=== PATIENT | male | born 1990 | race Two or more races ===

== ENCOUNTER 2017-05-11 07:24 | Emergency (ER) | payer SELFPAY ==
[~2017-05-11] VITALS: Ht 193 cm; Wt 129.3 kg
[2017-05-11 08:56] VITALS: BP 155/84
--- NOTE | 2017-05-11 09:08 | RAD ---
Three views FOOT RIGHT 3V Clinical History: leg fell through roof while working Comparison: None. Findings: The visualized osseous structures appear normal. Impression: No acute findings.
--- NOTE | 2017-05-11 09:10 | RAD ---
Two-view right tibia-fibula Clinical History: pain AP and lateral views were obtained. Previous studies: none The visualized osseous structures appear normal. Impression: No acute findings.
--- NOTE | 2017-05-11 09:10 | RAD ---
2 view right femur History: Pain from fall through a roof yesterday. AP and lateral views were obtained. Previous studies: none The visualized osseous structures appear normal. Impression: No acute findings.
--- NOTE | 2017-05-11 09:12 | RAD ---
Ribs left with PA chest History: Pain PA view of the chest and dedicated views of the left ribs were obtained. The heart and pulmonary vessels appear normal. The lungs and pleural margins are clear. The visualized osseous structures appear intact. Impression: No acute findings. No evidence of a bony displaced rib fracture.
--- NOTE | 2017-05-16 11:36 | PHYS DOC ---
Past Medical History Past Medical History: No Pertinent History Past Surgical History: No Surgical History Alcohol Use: Occasionally Drug Use: Marijuana Adult General Chief Complaint Chief Complaint: LOWEREXTREMITY INJURY HPI HPI Patient is a 26 year old male who presents with right leg pain after his foot stepped through a roof he was working on one day prior. He states that he was helping with a roof yesterday and his right leg went through up to his knee. Today he has bruising and pain to his right leg and left rib pain that started this morning. He denies lacerations or other injury. he is able to bear weight on his leg, but is requesting x-rays. Review of Systems Review of Systems Constitutional: Denies fever or chills [] Respiratory: Denies cough or shortness of breath [] Cardiovascular: No additional information not addressed in HPI [] GI: Denies abdominal pain, nausea, vomiting, bloody stools or diarrhea [] : Denies dysuria or hematuria [] Musculoskeletal: See HPI Integument: See HPI Neurologic: Denies headache, focal weakness or sensory changes [] Endocrine: Denies polyuria or polydipsia [] All other systems were reviewed and found to be within normal limits, except as documented in this note. Allergies Allergies Allergies Coded Allergies Type Severity Reaction Last Updated Verified No Known Drug Allergies 10/29/15 No Physical Exam Physical Exam Constitutional: Well developed, well nourished, no acute distress, non-toxic appearance. [] Neck: Normal range of motion, no tenderness, supple, no stridor. [] Cardiovascular:Heart rate regular rhythm, no murmur [] Lungs & Thorax: Bilateral breath sounds clear to auscultation [] Abdomen: Bowel sounds normal, soft, no tenderness, no masses, no pulsatile masses. [] Skin: Warm, dry, no erythema, no rash. [] Back: No point tenderness to ribs or spine, no stepoffs, no CVA tenderness. [] Extremities: tenderness and bruising to right lower extremity, pulses and sensation are intact distal to injury, full ROM Neurologic: Alert and oriented X 3, normal motor function, normal sensory function, no focal deficits noted. [] Psychologic: Affect normal, judgement normal, mood normal. [] Current Patient Data Vital Signs Vital Signs Date Time Temp Pulse Resp B/P (MAP) Pulse Ox O2 Delivery O2 Flow Rate FiO2 05/11/17 08:56 68 18 155/84 (107) 97 Room Air 05/11/17 07:44 98.6 98.6 EKG EKG [] Radiology/Procedures Radiology/Procedures []PATIENT: BRENDA RAMIRES ACCOUNT: [id number] : 1990 LOCATION: ER AGE: 26 SEX: M EXAM STATUS: REG ER ORD. PHYSICIAN: JUDITH CRUZ APRN REASON: leg fell through roof while working PROCEDURE: RIGHT FEMUR XRAY 2 view right femur History: Pain from fall through a roof yesterday. AP and lateral views were obtained. Previous studies: none The visualized osseous structures appear normal. Impression: No acute findings. DICTATED and SIGNED BY: CLEMENTINA NELSON III, MD DATE: 05/11/17 09 CC: JUDITH CRUZ APRN; NO PCP; NON,STAFF PATIENT: BRENDA RAMIRES ACCOUNT: [id number] : 1990 LOCATION: ER AGE: 26 SEX: M EXAM STATUS: REG ER ORD. PHYSICIAN: JUDITH CRUZ APRN REASON: leg fell through roof while working PROCEDURE: TIBIA FIBULA RIGHT Two-view right tibia-fibula Clinical History: pain AP and lateral views were obtained. Previous studies: none The visualized osseous structures appear normal. Impression: No acute findings. DICTATED and SIGNED BY: CLEMENTINA NELSON III, MD DATE: 05/11/17905 CC: JUDITH CRUZ APRN; NO PCP; NON,STAFF ~ Impressions: PATIENT: BRENDA RAMIRES ACCOUNT: [id number] : 1990 LOCATION: ER AGE: 26 SEX: M EXAM STATUS: REG ER ORD. PHYSICIAN: JUDITH CRUZ APRN REASON: leg fell through roof while working PROCEDURE: RIBS LEFT AND PA CHEST Ribs left with PA chest History: Pain PA view of the chest and dedicated views of the left ribs were obtained. The heart and pulmonary vessels appear normal. The lungs and pleural margins are clear. The visualized osseous structures appear intact. Impression: No acute findings. No evidence of a bony displaced rib fracture. DICTATED and SIGNED BY: CLEMENTINA NELSON III, MD DATE: 05/11/17906 CC: JUDITH CRUZ APRN; NO PCP; NON,STAFF ~ PATIENT: BRENDA RAMIRES ACCOUNT: [id number] : 1990 LOCATION: ER AGE: 26 SEX: M EXAM STATUS: REG ER ORD. PHYSICIAN: JUDITH CRUZ APRN REASON: leg fell through roof while working PROCEDURE: FOOT RIGHT 3V Three views FOOT RIGHT 3V Clinical History: leg fell through roof while working Comparison: None. Findings: The visualized osseous structures appear normal. Impression: No acute findings. DICTATED and SIGNED BY: CLEMENTINA NELSON III, MD DATE: 05/11/17902 Course & Med Decision Making Course & Med Decision Making Pertinent Labs and Imaging studies reviewed. (See chart for details) []1. Multiple Contusions The patient may use ibuprofen or tylenol for pain. Follow up with your PCP in 1 week if not improving or return to the ED if worsening. Dragon Disclaimer Dragon Disclaimer This electronic medical record was generated, in whole or in part, using a voice recognition dictation system. Departure Departure Impression: Primary Impression: Multiple contusions Disposition: 01 HOME, SELF-CARE Condition: STABLE Patient Instructions: Contusions-SportsMed Additional Instructions: Please use ibuprofen or Tylenol for pain. He may use hot or cold compresses or soak in a hot tub or pain relief of the sore muscles. If worsening please return to the ED, otherwise follow-up with your PCP as needed. JUDITH CRUZ APRN May 16, 2017 11:36
== END 2017-05-11 09:30 | disposition home or self-care (01) ==
LOC: ER 07:24
DX: S80.11XA Contusion of right lower leg, initial encounter (principal); S20.212A Contusion of left front wall of thorax, initial encounter; F12.10 Cannabis abuse, uncomplicated; X58.XXXA Exposure to other specified factors, initial encounter; Y93.89 Activity, other specified; Y92.89 Other specified places as the place of occurrence of the external cause; Y99.8 Other external cause status
CPT/HCPCS: 71101; 73552; 73590; 73630; 99284